=== PATIENT | male | born 1955 | race Caucasian/White ===

== ENCOUNTER 2021-05-21 08:51 | Emergency (ER) | payer MEDICARE, OTHER ==
[~2021-05-21] VITALS: Ht 175.3 cm; Wt 82.0 kg
[2021-05-21 09:07] VITALS: BP 107/77
[2021-05-21] MEDS ORDERED: TETanus/Pertussis (Acell)/Diphther VAC/PF (Tdap-Adult) 0.5ml syringe IMVAC ONE (10:45)
== END 2021-05-21 23:29 | disposition home or self-care (01) ==
LOC: ER 08:51
DX: S60.451A Superficial foreign body of left index finger, initial encounter (principal); M19.90 Unspecified osteoarthritis, unspecified site; Z20.3 Contact with and (suspected) exposure to rabies; Z87.442 Personal history of urinary calculi; Z95.1 Presence of aortocoronary bypass graft; Z72.89 Other problems related to lifestyle; W45.0XXA Nail entering through skin, initial encounter; Y93.89 Activity, other specified; Y92.89 Other specified places as the place of occurrence of the external cause; Y99.8 Other external cause status
CPT/HCPCS: 10120; 90471; 90715; 99284; 99285